=== PATIENT | male | born 1965 | race Caucasian/White ===

== ENCOUNTER 2019-11-29 15:21 | Emergency (ER) | payer BC ==
[~2019-11-29] VITALS: Ht 177.8 cm; Wt 81.8 kg
[2019-11-29 15:42] VITALS: BP 165/91; TEMP 97.8
[2019-11-29] MEDS ORDERED: CEPHALEXIN500 M1 PO (16:38)
[2019-11-29 16:57] VITALS: PULSE 75
== END 2019-11-29 16:57 | disposition home or self-care (01) ==
LOC: COL.ER 15:21
DX: S81.012A Laceration without foreign body, left knee, initial encounter (principal); Z23 Encounter for immunization; W26.8XXA Contact with other sharp object(s), not elsewhere classified, initial encounter